=== PATIENT | male | born 1940 | race Caucasian/White ===

== ENCOUNTER 2017-03-05 06:30 | Inpatient (IN) | payer MEDICARE ==
[~2017-03-05 06:30] MED LIST: ACTOS45 M1 PO; CENTRUM SILVER1 EAC3 PO; GLUCOPHAGE500 M3 PO; JANUVIA100 M1 PO; LIPITOR40 M1 PO
[2017-03-05 07:33] LABS: BASO % 0.3 % (0-2); EOS % 0.9 % (0-7); EOSINOPHIL ABSOLUTE COUNT 0.1 tho/cmm (0.0-0.7); HCT-HEMATOCRIT 45.6 % (36.0-53.5); HGB-HEMOGLOBIN 15.2 gm/dl (13.5-17.0); IMMATURE GRANULOCYTES ABSOLUTE 0.01 tho/cmm (0-0.03); IMMATURE GRANULOCYTES PERCENT 0.1 % (0-0.3); LYMPH % 24.5 % (20-45); LYMPH ABSOLUTE COUNT 1.7 tho/cmm (0.8-4.5); MCHC MEAN CORPUSCULAR HGB CONC 33.3 % (32.0-36.0); MCV (MEAN CELL VOLUME) 90.1 fl (82.0-96.0); MEAN PLATELET VOLUME 13.6 cmc (9.4-12.4); MONO % 8.5 % (0-12); MONOCYTE ABSOLUTE COUNT 0.6 tho/cmm (0.0-1.2); NEUTROPHIL ABSOLUTE COUNT 4.5 tho/cmm (1.6-8.0); NEUTROPHIL-AUTOMATED 4.5 tho/cmm (1.6-8.0); NEUTROPHILS % 65.7 % (40-80); PLATELET COUNT 198 tho/cmm (150-450); RED BLOOD COUNT 5.06 mil/cmm (4.40-5.70); RED CELL DISTRIBUTION WIDTH 13.5 % (12.4-16.4); WHITE BLOOD COUNT 6.9 tho/cmm (4.0-10.0)
[2017-03-05 07:41] LABS: ANION GAP 14 mmol/L (0-20); BLOOD UREA NITROGEN 13 mg/dl (6-24); CALCIUM 9.4 mg/dl (8.5-10.5); CARBON DIOXIDE-VENOUS 23 mmol/L (22-32); CHLORIDE 108 mmol/l (96-110); CREATININE 1.21 mg/dl (0.60-1.30); GLUCOSE 146 mg/dL (70-110); POTASSIUM 4.2 mmol/L (3.7-5.1); SODIUM 141 mmol/L (135-145); eGFR VALUE FOR BLACK 66 mL/Min
--- NOTE | 2017-03-05 21:14 | NUR ---
MARCIO ROUNDING NOTE-VISITED WITH PATIENT HE LAY COMFORTABLY IN BED. HE STATES HE IS BASICALLY HAVING NO PAIN BUT HAVING NAUSEA SOMETIMES SO I LET HIM KNOW TO ASK THE NURSE WHEN HE HAS IT AND IT DOES NOT SUBSIDE QUICKLY. ALSO EDUCATED HIM ON USING THE INCENTIVE SPIROMETER AND CDB. REVIEWED THE CUT AND COVER LINE WORKER WITH HIM FOR PAIN CONTROL BUT HE DID NOT KNOW ABOUT THE CUT AND COVER LINE WORKER OR HAVE A BUTTON TO USE ON HIS GOWN AND HAS NOT BEEN UP TO AMBULATE SINCE SURGERY. PAGED THE NURSE ASKING HER TO SHOW HIM THE CUT AND COVER LINE WORKER BUTTON AND THE AID TO WALK HIM.
[2017-03-06 05:30] LABS: BASO % 0.2 % (0-2); EOS % 0.6 % (0-7); EOSINOPHIL ABSOLUTE COUNT 0.1 tho/cmm (0.0-0.7); HCT-HEMATOCRIT 37.3 % (36.0-53.5); HGB-HEMOGLOBIN 12.3 gm/dl (13.5-17.0); IMMATURE GRANULOCYTES ABSOLUTE 0.01 tho/cmm (0-0.03); IMMATURE GRANULOCYTES PERCENT 0.1 % (0-0.3); LYMPH % 16.6 % (20-45); LYMPH ABSOLUTE COUNT 1.4 tho/cmm (0.8-4.5); MCH (MEAN CORPUSCULAR HGB) 29.4 pg (28.0-32.0); MCV (MEAN CELL VOLUME) 89.2 fl (82.0-96.0); MEAN PLATELET VOLUME 12.4 cmc (9.4-12.4); MONO % 9.2 % (0-12); MONOCYTE ABSOLUTE COUNT 0.8 tho/cmm (0.0-1.2); NEUTROPHIL ABSOLUTE COUNT 6.2 tho/cmm (1.6-8.0); NEUTROPHIL-AUTOMATED 6.2 tho/cmm (1.6-8.0); NEUTROPHILS % 73.3 % (40-80); PLATELET COUNT 156 tho/cmm (150-450); RED BLOOD COUNT 4.18 mil/cmm (4.40-5.70); RED CELL DISTRIBUTION WIDTH 13.6 % (12.4-16.4); WHITE BLOOD COUNT 8.4 tho/cmm (4.0-10.0)
[2017-03-06 06:02] LABS: ANION GAP 15 mmol/L (0-20); BLOOD UREA NITROGEN 13 mg/dl (6-24); CALCIUM 8.2 mg/dl (8.5-10.5); CARBON DIOXIDE-VENOUS 22 mmol/L (22-32); CHLORIDE 110 mmol/l (96-110); GLUCOSE 100 mg/dL (70-110); POTASSIUM 3.9 mmol/L (3.7-5.1); SODIUM 143 mmol/L (135-145)
[2017-03-06 06:04] LABS: CREATININE 0.97 mg/dl (0.60-1.30); eGFR VALUE FOR BLACK 86 mL/Min
--- NOTE | 2017-03-06 14:12 | NUR ---
virtual care note: visted w/ pt at this time. he is resting in bed. states he has been up for walks. tolerating clear liquid diet-IS at bedside, encouraged use of IS as well as CTDB. pt states his pain is well controlled. d/w him dc plan. will continue to monitor. has no further questions. electronic chart reviewed.
--- NOTE | 2017-03-06 22:03 | NUR ---
VN/LEADER ROUNDING-PATIENT WAS SLEEPING AND I WOKE HIM SO LETTING HIM RETURN BACK TO SLEEP
--- NOTE | 2017-03-07 12:06 | NUR ---
VIRTUAL CARE NOTE: ROUNDED WITH DR SANABRIA AT THIS TIME. PT DOING WELL. PULLED UP LAST SET OF VITAL SIGNS AND LAB RESULTS FOR DR SANABRIA AT HIS REQUEST. PT ASKING APPROPRIATE QUESTIONS. WONDERING ABOUT HIS STOOLING PATTERN POST SURGERY, WELL STOOL CHARACTERISTICS. DR SANABRIA ANSWERS PT'S QUESTIONS. PT IS ALERT/ORIENTED. TOMAS RENEE (CHARGE NURSE) ALSO PRESENT FOR PHYSICIAN ROUNDS. WILL CONTINUE TO MONITOR. ELECTRONIC CHART REVIEWED.
[2017-03-07 12:59] LABS: BASO % 0.3 % (0-2); EOS % 0.3 % (0-7); HCT-HEMATOCRIT 29.1 % (36.0-53.5); HGB-HEMOGLOBIN 9.7 gm/dl (13.5-17.0); LYMPH % 11.7 % (20-45); LYMPH ABSOLUTE COUNT 0.9 tho/cmm (0.8-4.5); MCHC MEAN CORPUSCULAR HGB CONC 33.3 % (32.0-36.0); MCV (MEAN CELL VOLUME) 90.1 fl (82.0-96.0); MEAN PLATELET VOLUME 12.8 cmc (9.4-12.4); MONO % 6.9 % (0-12); MONOCYTE ABSOLUTE COUNT 0.5 tho/cmm (0.0-1.2); NEUTROPHIL ABSOLUTE COUNT 5.9 tho/cmm (1.6-8.0); NEUTROPHIL-AUTOMATED 5.9 tho/cmm (1.6-8.0); NEUTROPHILS % 80.8 % (40-80); PLATELET COUNT 173 tho/cmm (150-450); RED BLOOD COUNT 3.23 mil/cmm (4.40-5.70); RED CELL DISTRIBUTION WIDTH 13.8 % (12.4-16.4); WHITE BLOOD COUNT 7.3 tho/cmm (4.0-10.0)
--- NOTE | 2017-03-08 16:37 | NUR ---
VIRTUAL CARE NOTE: PT RESTING ON BED STATES DOING GOOD TODAY. WILL ADVANCE DIET AT DINNER. DISCHARGE PLAN DISCUSSED, PT HAS A CONCERN THAT INSURANCE ONLY COVER UNTIL 03/08 PER LETTER SENT TO HIS HOUSE. MESSAGE LEFT TO PRODUCE FIELD MERCHANDISER REGARDING INSURANCE COVERAGE AND PT'S CONCERNS. PT DENIES FURTHER NEEDS OR QUESTIONS AT THIS TIME.
--- NOTE | 2017-03-08 21:11 | NUR ---
VN ROUNDING-DEFERRED AT THIS TIME HANG JUST ROUNDED ON PATIENT AT 1700
[2017-03-09 06:17] LABS: BASO % 0.4 % (0-2); EOS % 4.7 % (0-7); EOSINOPHIL ABSOLUTE COUNT 0.2 tho/cmm (0.0-0.7); HGB-HEMOGLOBIN 8.5 gm/dl (13.5-17.0); LYMPH % 32.5 % (20-45); LYMPH ABSOLUTE COUNT 1.5 tho/cmm (0.8-4.5); MCH (MEAN CORPUSCULAR HGB) 29.3 pg (28.0-32.0); MCHC MEAN CORPUSCULAR HGB CONC 32.7 % (32.0-36.0); MCV (MEAN CELL VOLUME) 89.7 fl (82.0-96.0); MEAN PLATELET VOLUME 12.5 cmc (9.4-12.4); MONO % 10.5 % (0-12); MONOCYTE ABSOLUTE COUNT 0.5 tho/cmm (0.0-1.2); NEUTROPHIL ABSOLUTE COUNT 2.4 tho/cmm (1.6-8.0); NEUTROPHIL-AUTOMATED 2.4 tho/cmm (1.6-8.0); NEUTROPHILS % 51.9 % (40-80); PLATELET COUNT 166 tho/cmm (150-450); RED CELL DISTRIBUTION WIDTH 13.7 % (12.4-16.4); WHITE BLOOD COUNT 4.7 tho/cmm (4.0-10.0)
[2017-03-09] MEDS ORDERED: ULTRAM50 M1 PO (07:27)
== END 2017-03-09 10:00 | DRG 331 ==
LOC: SHSA 06:30 → ORW 08:48 → PACU 12:12 → 5WD 14:12
PROVIDERS: Surgery; ADMIT Surgery
PROC: 0DTF4ZZ Resection of Right Large Intestine, Percutaneous Endoscopic Approach (ICD-10-PCS; principal; 2017-03-05)
PROC: 8E0W4CZ Robotic Assisted Procedure of Trunk Region, Percutaneous Endoscopic Approach (ICD-10-PCS; principal; 2017-03-05)
DX: D12.0 Benign neoplasm of cecum (principal); E11.9 Type 2 diabetes mellitus without complications; Z79.84 Long term (current) use of oral hypoglycemic drugs; E78.5 Hyperlipidemia, unspecified; K57.90 Diverticulosis of intestine, part unspecified, without perforation or abscess without bleeding
CPT/HCPCS: J0131; J1170; J1335; J1815; J2270; J2405; J2795; J7030